=== PATIENT | female | born 2005 | race Hispanic/Latino ===

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

== ENCOUNTER 2024-05-18 07:54 | Emergency (ER) | payer OTHER, SELFPAY ==
--- NOTE | 2024-05-18 08:16 | EDPHYS ---
Physician Documentation [facility] Name: Marisela Osuna Age: 19 yrs Sex: Female : 2005 Arrival Date: 05/18/2024 Time: 07:54 Bed IW1 Private MD: ED Physician Harris Sommer HPI: 05/18 08:12 This 19 yrs old Female presents to ER via Ambulatory with complaints of Arm rn Injury. 08:12 The patient or guardian complains of pain. The complaints affect the palmar aspect of rn left forearm. 08:13 Onset: The symptoms/episode began/occurred 2 week(s) ago. Modifying factors: The rn symptoms are alleviated by remaining still, the symptoms are aggravated by movement, lifting weight. Severity of symptoms: At their worst the symptoms were moderate, in the emergency department the symptoms have improved. The patient has not experienced similar symptoms in the past. 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 Has been having pain for a couple of weeks now. No focal injury or trauma to the arm. Hurts with certain range of motion. No weakness or tingling. No swelling.. 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 - Infectious Disease History:: Denies. - Social history:: Smoking status: Reported history of juuling and/or vaping. - Family history:: not pertinent. - Hospitalizations: : No recent hospitalization is reported. ROS: 08:13 Constitutional: Negative for fever, chills, and weight loss, MS/Extremity: Positive for rn pain to left forearm Skin: Negative for injury, rash, and discoloration, Neuro: Negative for weakness, numbness, tingling Exam: 08:13 Constitutional: This is a well developed, well nourished patient who is awake, alert, rn and in no acute distress. MS/ Extremity: Pulses equal, no cyanosis. Neurovascular intact. Full, normal range of motion. Mild tenderness along 4 with tenderness at volar wrist and medial condyle of elbow on left arm. No focal swelling. No bony tenderness. No discoloration. Vital Signs: 08:09 BP 124 / 74; Pulse 88; Resp 16; Temp 97.8; Pulse Ox 99% ; Weight 49.9 kg; Height 5 ft. ll1 0 in. ; Pain 6/10; 08:09 Body Mass Index 21.48 (49.90 kg, 152.4 cm) ll1 08:09 Pain Scale: Adult ll1 MDM: 08:00 Patient medically screened. rn 08:13 Differential diagnosis: tendonitis. Data reviewed: vital signs, nurses notes, and as a rn result, I will discharge patient. Counseling: I had a detailed discussion with the patient and/or guardian regarding the historical points, exam findings, and any diagnostic results supporting the discharge/admit diagnosis, the need for outpatient follow up, to return to the emergency department if symptoms worsen or persist or if there are any questions or concerns that arise at home. Special discussion: I discussed with the patient/guardian in detail that at this point there is no indication for admission to the hospital. It is understood, however, that if the symptoms persist or worsen the patient needs to return immediately for re-evaluation. ED course: No indication for emergent imaging at this time. Will treated as likely overuse and repetitive injury, recommend ice and rest. 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 Most likely tendinitis. Administered Medications: No medications were administered Disposition Summary: 05/18/24 08:16 Discharge Ordered Notes: Location: Home rn Problem: an ongoing problem rn Symptoms: are unchanged rn Condition: Stable rn Diagnosis - Tendinitis left arm rn Followup: rn - With: Private Physician - When: As needed - Reason: Recheck today's complaints, Re-evaluation by your physician Discharge Instructions: - Tendinitis rn - Discharge Summary Sheet ll1 Forms: - Medication Reconciliation Form rn - Antibiotic pattern weaver - Prescription Opioid Use rn - Patient Portal Instructions rn - Leadership Thank You Letter rn - Work release form ll1 Signatures: Harris Sommer MD MD rn Lewis, Lynsay, RN RN ll1 Yodit Vega RN RN kb3
--- NOTE | 2024-05-18 08:16 | ER ---
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 No specific trauma. Coronavirus screen: Client denies travel out of the [place] in the last 14 days. At this time, the client does not indicate any symptoms associated with coronavirus-19. Ebola Screen: Patient denies travel to an Ebola-affected area in the 21 days before illness onset. Initial Sepsis Screen: Does the patient meet any 2 criteria? No. Patient's initial sepsis screen is negative. Does the patient have a suspected source of infection? No. Patient's initial sepsis screen is negative. Risk Assessment: Do you want to hurt yourself or someone else? Patient reports no desire to harm self or others. Onset of symptoms was April 29, 2024. 08:09 Method Of Arrival: Ambulatory ll1 08:09 Acuity: ANISA 4 ll1 Triage Assessment: 08:11 General: Appears uncomfortable, Behavior is calm, cooperative, appropriate for age. ll1 Pain: Complains of pain in L wrist. Musculoskeletal: Circulation, motion, and sensation intact. Capillary refill < 3 seconds, Reports pain in L wrist. 08:11 Injury Description: none, repetitive movements. 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 - Infectious Disease History:: Denies. - Social history:: Smoking status: Reported history of juuling and/or vaping. - Family history:: not pertinent. - Hospitalizations: : No recent hospitalization is reported. Screenin:20 [facility] ED Fall Risk Assessment (Adult) History of falling in the last 3 months, kb3 including since admission No falls in past 3 months (0 pts) Confusion or Disorientation No (0 pts) Intoxicated or Sedated No (0 pts) Impaired Gait No (0 pts) Mobility Assist Device Used No (0 pt) Altered Elimination No (0 pt) Score/Fall Risk Level 0 - 2 = Low Risk Oriented to surroundings. Abuse screen: Denies threats or abuse. Denies injuries from another. Nutritional screening: No deficits noted. Tuberculosis screening: No symptoms or risk factors identified. Assessment: 08:20 Reassessment: Patient appears in no apparent distress at this time. No changes from kb3 previously documented assessment. General: Appears in no apparent distress. Behavior is calm, cooperative. Musculoskeletal: Reports pain in palmar aspect of left forearm No swelling or deformity, Full ROM noted to left wrist and left elbow. Vital Signs: 08:09 BP 124 / 74; Pulse 88; Resp 16; Temp 97.8; Pulse Ox 99% ; Weight 49.9 kg; Height 5 ft. ll1 0 in. ; Pain 6/10; 08:09 Body Mass Index 21.48 (49.90 kg, 152.4 cm) ll1 08:09 Pain Scale: Adult ll1 ED Course: 07:58 Patient arrived in ED. ra3 08:00 Harris Sommer MD is Attending Physician. rn 08:10 Triage completed. ll1 08:11 Arm band placed on Patient placed in an exam room, on a stretcher. ll1 08:20 Patient has correct armband on for positive identification. Provided Education on: kb3 Discharge education, ice, rest. 08:20 No provider procedures requiring assistance completed. Patient did not have IV access kb3 during this emergency room visit. Administered Medications: No medications were administered Medication: 08:20 VIS not applicable for this client. kb3 Outcome: 08:16 Discharge ordered by . rn 08:25 Discharged to home ambulatory, kb3 08:25 Condition: stable kb3 08:25 Discharge instructions given to patient, Instructed on discharge instructions, follow up and referral plans. medication usage, Demonstrated understanding of instructions, follow-up care, medications, 08:41 Patient left the ED. kb3 Signatures: Harris Sommer MD MD rn Lewis, Lynsay, RN RN 1 Yodit Vega RN RN kb3 Alisson Partida ra3
[2024-05-18 08:45] VITALS: BP 124/74; TEMP 97.8; O2SAT 99
== END 2024-05-18 08:41 | disposition home or self-care (01) ==
LOC: ER 07:54
DX: M77.8 Other enthesopathies, not elsewhere classified (principal)

== ENCOUNTER 2025-07-03 05:25 | Emergency (ER) | payer SELFPAY ==
[2025-07-03] MEDS ORDERED: ACETAMINOPHEN 500 MG TAB ONE (06:07)
[2025-07-03 06:34] LABS: Absolute Lymphocytes (CBC) 2.9 K/uL (0.7-4.9); Hematocrit 37.3 % (36.0-45.0); Hemoglobin 13.0 g/dL (12.0-15.0); MCH 31.7 pg (27.0-35.0); MCHC 35.0 g/dL (32.0-36.0); MCV 90.5 fL (80-100); MPV 7.4 fL (7.6-11.3); Nucleated RBC Absolute Count 0.0 (0-0); Nucleated Red Blood Cells % 0.0 % (0-0); RBC Red Blood Cell Count 4.12 M/uL (3.86-4.86); White Blood Count 7.20 thou/uL (4.3-10.9)
[2025-07-03 06:44] LABS: Sqamous Epithelial <5 /HPF (None Seen); Urine Crystals Unidentified Few /HPF (None Seen); Urine Culture Reflex Order NOT NEEDED; Urine Microscopic Reflex YN ORDER UMIC; Urine WBC Clump Rare /HPF (None Seen)
--- NOTE | 2025-07-03 06:58 | RAD REPORT ---
INDICATION: 12 weeks , vag bleed COMPARISON: No existing relevant imaging studies are available FINDINGS: Transabdominal ultrasound was performed including grayscale and color Doppler imaging. UTERUS: No intrauterine identified. Uterus measures 7.2 x 4.4 x 7.7 cm. Endometrium normal in thickness. RIGHT ADNEXA: Right ovary measures 2.1 x 1.5 x 1.3 cm. Normal blood flow. LEFT ADNEXA: Left ovary measures 2.1 x 1.6 x 1.8 cm. Normal blood flow. FLUID: No free fluid. OTHER: No additional findings. IMPRESSION: No intrauterine demonstrated. If patient has a positive serum hCG, the possibility of an un seen ectopic , spontaneous , or very early IUP cannot be excluded. Recommend followup with trending serum hCG and ultrasound. Electronically signed by: Luis A Le DO 07/03/2025 06:34 AM CDT NR Due to temporary technical issues with the [employer] reporting system, reports are being josefa d by the in-house radiologist without review as a courtesy to ensure prompt reporting the interpreting radiologist is fully responsible for the content of the report. Transcribed Date/Time: 07/03/2025 6:58 AM
[2025-07-03 07:19] LABS: ALT/SGPT 27.0 U/L (13-56); AST/SGOT 27.0 U/L (15-37); Albumin 3.6 g/dL (3.4-5.0); Albumin/Globulin Ratio 1.1 (1.1-1.8); Alkaline Phosphatase 62.0 U/L (45-117); Anion Gap 10.2 mEq/L (5.0-15.0); BUN Blood Urea Nitrogen 7.0 mg/dL (7-18); Globulin 3.4 g/dL (2.3-3.5); Glucose Level 99.0 mg/dL (74-106); HCG, Quantitative 7319.0 mIU/mL (1-3); Potassium 3.2 mEq/L (3.5-5.1)
--- NOTE | 2025-07-03 07:33 | ER ---
Nurse's Notes [facility] Name: Marisela Osuna Age: 20 yrs Sex: Female : 2005 Arrival Date: 07/03/2025 Time: 05:25 Bed 6 Private MD: Diagnosis: Incomplete spontaneous without complication;Vaginal bleeding in Presentation: 07/03 05:36 Chief complaint: Patient states: hot flashes, cramping and bleeding that started at cc6 about 1999 yesterday 07/02/25, at one point passed a large blood clot. LMP April 13, 2025. 05:36 Coronavirus screen: Client denies travel out of the [place] in the last 14 days. At this cc6 time, the client does not indicate any symptoms associated with coronavirus-19. Ebola Screen: No symptoms or risks identified at this time. Initial Sepsis Screen: Does the patient meet any 2 criteria? No. Patient's initial sepsis screen is negative. Does the patient have a suspected source of infection? No. Patient's initial sepsis screen is negative. Risk Assessment: Do you want to hurt yourself or someone else? Patient reports no desire to harm self or others. Onset of symptoms was July 02, 2025 at 20:00. 05:36 Method Of Arrival: Ambulatory cc6 05:36 Acuity: ANISA 3 cc6 Triage Assessment: 05:36 General: Appears in no apparent distress. comfortable, Behavior is calm, cooperative. cc6 Pain: Complains of pain in right lower quadrant and left lower quadrant Pain does not radiate. Pain currently is 6 out of 10 on a pain scale. at worst was 10 out of 10 on a pain scale. Quality of pain is described as crampy, Pain began 07/02/20251999. EENT: No signs and/or symptoms were reported regarding the EENT system. Neuro: Level of Consciousness is awake, alert, obeys commands, Oriented to person, place, time, situation. Cardiovascular: Patient's skin is warm and dry. Respiratory: Airway is patent Respiratory effort is even, unlabored, Respiratory pattern is regular, symmetrical. GI: Abdomen is flat, non-distended, Bowel sounds present X 4 quads. Abd is soft X 4 quads Abdomen is tender to palpation in right lower quadrant and left lower quadrant. : Reports cramping, vaginal bleeding that is bright red, heavy flow. Derm: No signs and/or symptoms reported regarding the dermatologic system. Musculoskeletal: Circulation, motion, and sensation intact. Range of motion: intact in all extremities. 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 - Infectious Disease History:: Denies. - Social history:: Smoking status: Patient denies any tobacco usage or history of. Patient uses Patient/guardian denies using alcohol, street drugs. Screenin:36 [facility] ED Fall Risk Assessment (Adult) History of falling in the last 3 months, cc6 including since admission No falls in past 3 months (0 pts) Confusion or Disorientation No (0 pts) Intoxicated or Sedated No (0 pts) Impaired Gait No (0 pts) Mobility Assist Device Used No (0 pt) Altered Elimination No (0 pt) Score/Fall Risk Level 0 - 2 = Low Risk Oriented to surroundings, Maintained a safe environment, Educated pt \T\ family on fall prevention, incl call for assistance when getting out of bed. Abuse screen: Denies threats or abuse. Denies injuries from another. Nutritional screening: No deficits noted. Tuberculosis screening: No symptoms or risk factors identified. Assessment: 06:15 Reassessment: SEE TRIAGE. cc6 07:10 General: Appears in no apparent distress. uncomfortable, Behavior is calm, cooperative. cm10 Neuro: No deficits noted. Level of Consciousness is awake, alert, obeys commands, Oriented to person, place, time, situation, Appropriate for age. Respiratory: No deficits noted. Airway is patent Respiratory effort is even, unlabored, Respiratory pattern is regular, symmetrical. : Reports vaginal bleeding that is. Musculoskeletal: No deficits noted. Range of motion: intact in all extremities. Vital Signs: 05:36 BP 122 / 75; Pulse 79; Resp 18; Temp 98.4(TE); Pulse Ox 100% ; Weight 51.26 kg; Height cc6 5 ft. 0 in. ; Pain 6/10; 07:14 BP 115 / 69; Pulse 86; Resp 17; Pulse Ox 100% on R/A; cm10 07:38 BP 117 / 71; Pulse 86; Resp 14; Pulse Ox 100% ; cm10 05:36 Body Mass Index 22.07 (51.26 kg, 152.4 cm) cc6 05:36 Pain Scale: Adult cc6 Bryan Coma Score: 07:10 Eye Response: spontaneous(4). Motor Response: obeys commands(6). Verbal Response: sp4 oriented(5). Total: 15. ED Course: 05:28 Patient arrived in ED. gm2 05:35 Phan Calabrese MD is Attending Physician. sp4 05:36 Arm band placed on right wrist. cc6 05:36 Bed in low position. Call light in reach. Side rails up X 1. Provided Education on: Use cc6 of call light. 05:50 Inserted saline lock: 20 gauge in right antecubital area, using aseptic technique. cc6 Blood collected. Flushed with 10 mL NS. 06:02 1St Trimest Single 1St Fetus In Process Unspecified. EDMS 06:04 Laisha Tee, RN is Primary Nurse. cc6 06:08 Triage completed. cc6 06:16 CBC with Diff Sent. cc6 06:16 CMP Sent. cc6 06:16 HCG-Quantitative Sent. cc6 06:16 UA Rfx Catalino Cult if indicated Sent. cc6 06:16 Abo/rh Typing Sent. cc6 07:03 Primary Nurse role handed off by Laisha Tee, RN cm10 07:03 Svetlana Nance, RN is Primary Nurse. cm10 07:43 No provider procedures requiring assistance completed. IV discontinued, intact, cm10 bleeding controlled, No redness/swelling at site. Pressure dressing applied. Administered Medications: 06:15 Drug: Acetaminophen PO 1000 mg PO once Route: PO; cc6 07:14 Follow up: Response: No adverse reaction; Pain is decreased cm10 Medication: 07:44 VIS not applicable for this client. cm10 Outcome: 07:32 Discharge ordered by . sp4 07:44 Discharged to home ambulatory, with friend, cm10 07:44 Condition: good 07:44 Discharge instructions given to patient, Instructed on discharge instructions, follow up and referral plans. Demonstrated understanding of instructions, follow-up care, 07:44 Patient left the ED. cm10 Signatures: Dispatcher [employer] EDPhan Dubon MD MD sp4 Svetlana Nance RN RN cm10 Meenakshi Goel 2 Laisha Tee RN RN cc6 Corrections: (The following items were deleted from the chart) 06:18 05:36 LMP 04/13/2025, Verified, EDC 01/18/2026, Gestational age from LMP: 11 cc6 weeks 4 days cc6 06:20 05:36 LMP 04/13/2025, unknown cc6 cc6
--- NOTE | 2025-07-03 07:33 | EDPHYS ---
Physician Documentation [facility] Name: Marisela Osuna Age: 20 yrs Sex: Female : 2005 Arrival Date: 07/03/2025 Time: 05:25 Bed 6 Private MD: ED Physician Phan Calabrese HPI: 07/03 05:35 This 20 yrs old Female presents to ER via Unassigned with complaints of sp4 Abdominal Cramping, Vaginal Bleeding, + Preg <12wks. 07:09 This is a 20-year-old female G1, P0 at 11 weeks 4 days EGA by LMP. LMP 04/13/2025. sp4 Patient presents with acute onset pelvic cramping and vaginal bleeding described as moderate.. 07:10 Cramping and bleeding started yesterday at 8 PM. Patient reported passing large sized sp4 blood clot.. 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 - Infectious Disease History:: Denies. - Social history:: Smoking status: Patient denies any tobacco usage or history of. Patient uses Patient/guardian denies using alcohol, street drugs. ROS: 07:10 Constitutional: Negative for fever, chills, and weight loss, positive pelvic cramping sp4 and vag bleeding 07:10 All other systems are negative, Exam: 07:10 Constitutional: This is a well developed, well nourished patient who is awake, alert, sp4 and in no acute distress. Head/Face: Normocephalic, atraumatic. Eyes: Pupils equal round and reactive to light, extra-ocular motions intact. Lids and lashes normal. Conjunctiva and sclera are not injected. Cornea within normal limits. Periorbital areas with no swelling, redness, or edema. ENT: Nares patent. No nasal discharge, no septal abnormalities noted. Tympanic membranes are normal and external auditory canals are clear. Oropharynx with no redness, swelling, or masses, exudates, or evidence of obstruction, uvula midline. Mucous membranes moist. Neck: Trachea midline, no thyromegaly or masses palpated, and no cervical lymphadenopathy. Supple, full range of motion without nuchal rigidity, or vertebral point tenderness. Chest/axilla: Normal chest wall appearance and motion. Nontender with no deformity. No lesions are appreciated. Cardiovascular: Regular rate and rhythm with a normal S1 and S2. No gallops, murmurs, or rubs. No pulse deficits. Respiratory: Lungs have equal breath sounds bilaterally, clear to auscultation and percussion. No rales, rhonchi or wheezes noted. No increased work of breathing, no retractions or nasal flaring. Abdomen/GI: Soft, with normal bowel sounds. No distension or tympany. No guarding or rebound. No evidence of tenderness throughout. Back: No spinal tenderness. No costovertebral tenderness. Skin: Warm, dry with normal turgor. Normal color with no rashes, no lesions, and no evidence of cellulitis. MS/ Extremity: Pulses equal, no cyanosis. Neurovascular intact. Full, normal range of motion. Neuro: Awake and alert, GCS 15, oriented to person, place, time, and situation. Cranial nerves II-XII grossly intact. Motor strength 5/5 in all extremities. Sensory grossly intact. Psych: Awake, alert, with orientation to person, place and time. Behavior, mood, and affect are within normal limits Vital Signs: 05:36 BP 122 / 75; Pulse 79; Resp 18; Temp 98.4(TE); Pulse Ox 100% ; Weight 51.26 kg; Height cc6 5 ft. 0 in. ; Pain 6/10; 07:14 BP 115 / 69; Pulse 86; Resp 17; Pulse Ox 100% on R/A; cm10 07:38 BP 117 / 71; Pulse 86; Resp 14; Pulse Ox 100% ; cm10 05:36 Body Mass Index 22.07 (51.26 kg, 152.4 cm) cc6 05:36 Pain Scale: Adult cc6 Rl Coma Score: 07:10 Eye Response: spontaneous(4). Motor Response: obeys commands(6). Verbal Response: sp4 oriented(5). Total: 15. MDM: 05:36 Medical Screening Exam initiated sp4 06:54 ED course: INDICATION: 12 weeks , vag bleed COMPARISON: No existing relevant imaging sp4 studies are available FINDINGS: Transabdominal ultrasound was performed including grayscale and color Doppler imaging. UTERUS: No intrauterine identified. Uterus measures 7.2 x 4.4 x 7.7 cm. Endometrium normal in thickness. RIGHTADNEXA: Right ovary measures 2.1 x 1.5 x 1.3 cm. Normal blood flow. LEFTADNEXA: Left ovary measures 2.1 x 1.6 x 1.8 cm. Normal blood flow. FLUID: No free fluid. OTHER: No additional findings. IMPRESSION: No intrauterine demonstrated. If patient has a positive serum hCG, the possibility of an unseen ectopic , spontaneous , or very early IUP cannot be excluded. Recommend followup with trending serum hCG and ultrasound.. 07/04 02:08 Differential diagnosis: STD, ectopic . Data reviewed: vital signs, nurses sp4 notes, old medical records, lab test result(s), radiologic studies, plain films. Consideration of Admission/Observation Escalation of care including admission/observation considered. ED course: Clinical picture consistent with incomplete . Patient stable for discharge home. Advised follow-up with CARPET WEAVER in 2 days for hCG level.. 07/03 05:35 Order name: CBC with Diff; Complete Time: 06:53 sp4 07/03 05:35 Order name: CMP; Complete Time: 07:29 sp4 07/03 05:36 Order name: Abo/rh Typing; Complete Time: 07:33 sp4 07/03 05:36 Order name: UA Rfx Catalino Cult if indicated; Complete Time: 06:53 sp4 07/03 05:36 Order name: HCG-Quantitative; Complete Time: 07:29 sp4 07/03 06:02 Order name: 1St Trimest Single 1St Fetus EDMS 07/03 05:35 Order name: IV Saline Lock; Complete Time: 06:16 sp4 07/03 05:35 Order name: Labs collected and sent; Complete Time: 06:16 sp4 Administered Medications: 07/03 06:15 Drug: Acetaminophen PO 1000 mg PO once Route: PO; cc6 07:14 Follow up: Response: No adverse reaction; Pain is decreased cm10 Disposition Summary: 07/03/25 07:32 Discharge Ordered Problem: new sp4 Symptoms: have improved sp4 Condition: Stable sp4 Diagnosis - Incomplete spontaneous without complication sp4 - Vaginal bleeding in sp4 Followup: sp4 - With: Private Physician - When: 2 - 3 days - Reason: Recheck today's complaints Discharge Instructions: - Discharge Summary Sheet sp4 - Incomplete Miscarriage sp4 Forms: - Patient Portal Instructions sp4 Signatures: Dispatcher [employer] EDPhan Dubon MD MD sp4 Laisha Tee RN RN cc6 Svetlana Nance RN cm10 Corrections: (The following items were deleted from the chart) 06:02 05:36 OB Limited+US.RAD.BRZ ordered. EDMS EDMS
[2025-07-03 08:06] VITALS: TEMP 98.4; O2SAT 100
[2025-07-03 08:09] VITALS: BP 117/71
== END 2025-07-03 07:44 | disposition home or self-care (01) ==
LOC: ER 05:25
DX: O03.4 Incomplete spontaneous abortion without complication (principal)
CPT/HCPCS: 36415; 76801; 80053; 81001; 84702; 85025; 86900; 86901; 99284

== ENCOUNTER 2025-07-06 04:26 | Emergency (ER) | payer SELFPAY ==
--- NOTE | 2025-07-06 06:53 | EDPHYS ---
Physician Documentation [facility] Name: Marisela Osuna Age: 20 yrs Sex: Female : 2005 Arrival Date: 07/06/2025 Time: 04:26 Bed 7 Private MD: ED Physician Phan Calabrese HPI: 07/06 04:39 This 20 yrs old Female presents to ER via Unassigned with complaints of sp4 Abnormal Lab Results, follow up to check hcg. 21:26 Patient was diagnosed with acute miscarriage on 07/03/2025, specifically diagnosed with sp4 incomplete miscarriage at the 11 weeks 4 days EGA. Patient is here to recheck her hCG level. Historical: - Allergies: 06:01 NKA; kd3 - Home Meds: 06:01 Zyrtec Oral [Active]; kd3 - PMHx: 06:01 Asthma; kd3 - Immunization history:: Adult Immunizations up to date. - Infectious Disease History:: Denies. - Social history:: Smoking status: Patient denies any tobacco usage or history of. - Family history:: not pertinent. ROS: 21:27 Constitutional: Negative for fever, chills, and weight loss, positive for vaginal sp4 spotting and cramps 21:27 All other systems are negative, Exam: 21:27 Constitutional: This is a well developed, well nourished patient who is awake, alert, sp4 and in no acute distress. Head/Face: Normocephalic, atraumatic. Eyes: Pupils equal round and reactive to light, extra-ocular motions intact. Lids and lashes normal. Conjunctiva and sclera are not injected. Cornea within normal limits. Periorbital areas with no swelling, redness, or edema. ENT: Nares patent. No nasal discharge, no septal abnormalities noted. Tympanic membranes are normal and external auditory canals are clear. Oropharynx with no redness, swelling, or masses, exudates, or evidence of obstruction, uvula midline. Mucous membranes moist. Neck: Trachea midline, no thyromegaly or masses palpated, and no cervical lymphadenopathy. Supple, full range of motion without nuchal rigidity, or vertebral point tenderness. Chest/axilla: Normal chest wall appearance and motion. Nontender with no deformity. No lesions are appreciated. Cardiovascular: Regular rate and rhythm with a normal S1 and S2. No gallops, murmurs, or rubs. No pulse deficits. Respiratory: Lungs have equal breath sounds bilaterally, clear to auscultation and percussion. No rales, rhonchi or wheezes noted. No increased work of breathing, no retractions or nasal flaring. Abdomen/GI: Soft, with normal bowel sounds. No distension or tympany. No guarding or rebound. No evidence of tenderness throughout. Back: No spinal tenderness. No costovertebral tenderness. Skin: Warm, dry with normal turgor. Normal color with no rashes, no lesions, and no evidence of cellulitis. MS/ Extremity: Pulses equal, no cyanosis. Neurovascular intact. Full, normal range of motion. Neuro: Awake and alert, GCS 15, oriented to person, place, time, and situation. Cranial nerves II-XII grossly intact. Motor strength 5/5 in all extremities. Sensory grossly intact. Psych: Awake, alert, with orientation to person, place and time. Behavior, mood, and affect are within normal limits Vital Signs: 06:00 BP 113 / 73; Pulse 72; Resp 16; Temp 98.2; Pulse Ox 100% ; Weight 51.26 kg; Height 5 kd3 ft. 0 in. ; 07:19 BP 111 / 73; Pulse 70; Resp 16; Temp 98(TE); Pulse Ox 100% on R/A; nh2 06:00 Body Mass Index 22.07 (51.26 kg, 152.4 cm) kd3 Rl Coma Score: 21:27 Eye Response: spontaneous(4). Motor Response: obeys commands(6). Verbal Response: sp4 oriented(5). Total: 15. MDM: 04:39 Medical Screening Exam initiated sp4 21:27 Differential Diagnosis altered mental status, sepsis, flu. Data reviewed: vital signs, sp4 nurses notes, lab test result(s), hCG level. Consideration of Admission/Observation Escalation of care including admission/observation considered. ED course: hCG level today markedly decreased from 07/03/2025 this indicates incomplete miscarriage. Will recommend pelvic rest for another 2 weeks.. 07/06 04:39 Order name: HCG-Quantitative; Complete Time: 06:48 sp4 Administered Medications: No medications were administered Disposition: 21:28 Chart complete. sp4 Disposition Summary: 07/06/25 06:52 Discharge Ordered Notes: Location: Home sp4 Problem: new sp4 Symptoms: have improved sp4 Condition: Stable sp4 Diagnosis - Incomplete miscarriage sp4 Followup: sp4 - With: Private Physician - When: 7 - 10 days - Reason: Recheck today's complaints Discharge Instructions: - Discharge Summary Sheet sp4 - Incomplete Miscarriage sp4 Forms: - Patient Portal Instructions sp4 Signatures: Dispatcher [employer] Love Villalobos RN RN kd3 Phan Calabrese MD MD sp4
--- NOTE | 2025-07-06 06:53 | ER ---
Nurse's Notes [facility] Name: Marisela Osuna Age: 20 yrs Sex: Female : 2005 Arrival Date: 07/06/2025 Time: 04:26 Bed 7 Private MD: Diagnosis: Incomplete miscarriage Presentation: 07/06 06:00 Chief complaint: Patient states: THE ER DOCTOR I SAW LAST TIME I WAS HERE FOR MY kd3 MISCARRIAGE TOLD ME TO COME BACK TO GET MY BLOOD LEVELS CHECKED. Coronavirus screen: Vaccine status: Patient reports being unvaccinated. Ebola Screen: No symptoms or risks identified at this time. Initial Sepsis Screen: Does the patient meet any 2 criteria? No. Patient's initial sepsis screen is negative. Does the patient have a suspected source of infection? No. Patient's initial sepsis screen is negative. Risk Assessment: Do you want to hurt yourself or someone else? Patient reports no desire to harm self or others. Onset of symptoms was July 06, 2025. 06:00 Method Of Arrival: Ambulatory kd3 06:00 Acuity: ANISA 4 kd3 Triage Assessment: 06:01 General: Appears in no apparent distress. Behavior is calm, cooperative. Pain: Denies kd3 pain. Neuro: Level of Consciousness is awake, alert, obeys commands, Oriented to person, place, time, situation. Cardiovascular: Capillary refill < 3 seconds Patient's skin is warm and dry. Respiratory: Airway is patent Trachea midline Respiratory effort is even, unlabored, Respiratory pattern is regular, symmetrical. GI: No signs and/or symptoms were reported involving the gastrointestinal system. : No signs and/or symptoms were reported regarding the genitourinary system. Derm: No signs and/or symptoms reported regarding the dermatologic system. Musculoskeletal: No signs and/or symptoms reported regarding the musculoskeletal system. Historical: - Allergies: 06:01 NKA; kd3 - Home Meds: 06:01 Zyrtec Oral [Active]; kd3 - PMHx: 06:01 Asthma; kd3 - Immunization history:: Adult Immunizations up to date. - Infectious Disease History:: Denies. - Social history:: Smoking status: Patient denies any tobacco usage or history of. - Family history:: not pertinent. Screenin:05 [facility] ED Fall Risk Assessment (Adult) History of falling in the last 3 months, kd3 including since admission No falls in past 3 months (0 pts) Confusion or Disorientation No (0 pts) Intoxicated or Sedated No (0 pts) Impaired Gait No (0 pts) Mobility Assist Device Used No (0 pt) Altered Elimination No (0 pt) Score/Fall Risk Level 0 - 2 = Low Risk Maintained a safe environment. Abuse screen: Denies threats or abuse. Denies injuries from another. Nutritional screening: No deficits noted. Tuberculosis screening: No symptoms or risk factors identified. Assessment: 07:04 General: Appears in no apparent distress. Behavior is calm, cooperative. Neuro: Level kd3 of Consciousness is awake, alert, obeys commands, Oriented to person, place, time, situation. Cardiovascular: Capillary refill < 3 seconds Patient's skin is warm and dry. Respiratory: Airway is patent Trachea midline Respiratory effort is even, unlabored, Respiratory pattern is regular, symmetrical. GI: No signs and/or symptoms were reported involving the gastrointestinal system. : No signs and/or symptoms were reported regarding the genitourinary system. EENT: No signs and/or symptoms were reported regarding the EENT system. Derm: No signs and/or symptoms reported regarding the dermatologic system. Vital Signs: 06:00 BP 113 / 73; Pulse 72; Resp 16; Temp 98.2; Pulse Ox 100% ; Weight 51.26 kg; Height 5 kd3 ft. 0 in. ; 07:19 BP 111 / 73; Pulse 70; Resp 16; Temp 98(TE); Pulse Ox 100% on R/A; nh2 06:00 Body Mass Index 22.07 (51.26 kg, 152.4 cm) kd3 Rl Coma Score: 21:27 Eye Response: spontaneous(4). Motor Response: obeys commands(6). Verbal Response: sp4 oriented(5). Total: 15. ED Course: 04:33 Patient arrived in ED. gm2 04:38 Phan Calabrese MD is Attending Physician. sp4 05:32 Maida Zuniga, DON is Primary Nurse. kb4 06:01 Triage completed. kd3 06:01 Arm band placed on right wrist. kd3 06:05 No provider procedures requiring assistance completed. Patient did not have IV access kd3 during this emergency room visit. 06:06 Patient has correct armband on for positive identification. Provided Education on: kd3 BLOOD DRAW . Administered Medications: No medications were administered Medication: 06:05 VIS not applicable for this client. kd3 Outcome: 06:52 Discharge ordered by . sp4 07:20 Discharged to home ambulatory, with friend, nh2 07:20 Condition: stable 07:20 Discharge instructions given to patient, Instructed on discharge instructions, follow up and referral plans. Demonstrated understanding of instructions, follow-up care, 07:21 Patient left the ED. nh2 Signatures: Love Hauser RN RN kd3 Phan Calabrese MD MD sp4 Meenakshi Goel 2 Bro Jon Jr, RN RN nh2 Maida Zuniga RN RN kb4 Corrections: (The following items were deleted from the chart) 06:01 06:00 Acuity: ANISA 5 kd3 kd3
[2025-07-06 07:27] VITALS: O2SAT 100
[2025-07-06 07:28] VITALS: BP 111/73; TEMP 98
== END 2025-07-06 07:21 | disposition home or self-care (01) ==
LOC: ER 04:26
DX: O03.4 Incomplete spontaneous abortion without complication (principal)
CPT/HCPCS: 36415; 84702; 99283